=== PATIENT | female | born 1970 | race Caucasian/White ===

== ENCOUNTER 2016-12-09 16:00 | Outpatient (RCR) | payer BC ==
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
[~2016-12-09 16:00] MED LIST: ATN25T PO; CYCL10TA45 PO; HYDR-3702 PO; MELO7.5T PO
== END 2016-12-12 | disposition home or self-care (01) ==
LOC: PT 16:00
PROVIDERS: ATTEND Orthopaedic Surgery
DX: M75.112 Incomplete rotator cuff tear or rupture of left shoulder, not specified as traumatic (principal)

== ENCOUNTER 2017-01-21 15:30 | Outpatient (RCR) | payer BC | END 2017-02-10 12:50 | disposition home or self-care (01) | LOC: PT 15:30 | PROVIDERS: ATTEND Orthopaedic Surgery | DX: M75.112 Incomplete rotator cuff tear or rupture of left shoulder, not specified as traumatic (principal) ==